=== PATIENT | male | born 1985 | race Caucasian/White ===

== ENCOUNTER 2020-09-02 08:57 | Inpatient (IN) | payer OTHER ==
[~2020-09-02] VITALS: Ht 185.4 cm; Wt 85.0 kg
[2020-09-02 09:33] LABS: BASOPHILS % (AUTO) 0.2 % (0-1); EOSINOPHILS % (AUTO) 0.1 % (0-6); HEMATOCRIT 46.8 % (42.0-52.0); HEMOGLOBIN 15.8 g/dl (14.0-17.9); LYMPHOCYTES # (AUTO) 0.6 X10'3 (1.1-4.8); LYMPHOCYTES % (AUTO) 9.3 % (21-51); MEAN CORPUSCULAR HEMOGLOBIN 29.4 PG (27.0-31.0); MEAN CORPUSCULAR HGB CONC 33.8 g/dL (33.0-36.5); MEAN CORPUSCULAR VOLUME 87.1 FL (78-98); MEAN PLATELET VOLUME 9.9 FL (7.4-10.4); MONOCYTES # (AUTO) 0.5 X10'3 (0-0.9); MONOCYTES % (AUTO) 8.3 % (2-12); NEUTROPHILS # (AUTO) 4.9 X10'3 (1.8-7.7); NEUTROPHILS % (AUTO) 82.1 % (42-75); PLATELET COUNT 147 X10'3 (140-440); RED BLOOD COUNT 5.37 X10'6 (4.70-6.10); RED CELL DISTRIBUTION WIDTH 13.3 % (11.5-14.5)
[2020-09-02 09:42] LABS: ALANINE AMINOTRANSFERASE 20 U/L (12-78); ALBUMIN 3.9 G/DL (3.4-5.0); ALBUMIN/GLOBULIN RATIO 1.1 (1.1-1.5); ALKALINE PHOSPHATASE 75 IU/L (46-116); ANION GAP 12 (8-16); ASPARTATE AMINO TRANSFERASE 13 U/L (10-37); BILIRUBIN,TOTAL 0.4 MG/DL (0.1-1.0); BLOOD UREA NITROGEN 9 MG/DL (7-18); BUN/CREATININE RATIO 8.5 (5.4-32.0); CALCIUM 8.7 MG/DL (8.5-10.1); CHLORIDE 106 MMOL/L (99-107); CREATININE 1.06 MG/DL (0.60-1.10); GLUCOSE 120 MG/DL (70-104); POTASSIUM 3.9 MMOL/L (3.5-5.1); SODIUM 142 MMOL/L (135-145); TOTAL CARBON DIOXIDE 23.7 MMOL/L (24-32); TOTAL PROTEIN 7.5 G/DL (6.4-8.2); eGFR 79 ML/MIN
--- NOTE | 2020-09-02 10:37 | NUR ---
GRACIE AT THE BEDSIDE TO INTERROGATE PACEMAKER. [employer] REP CALLED FROM [facility] TO INFORM THAT THEY WOULD NOT BE ABLE TO COME HERE TO INTERROGATE THE PACEMAKER UNTIL THURSDAY OR THURSDAY. CONTACT NUMBER FOR [employer] IS [phone]
[2020-09-02] MEDS ORDERED: magnesium 2GM in 50ml NS 50 ML IV PRN (10:50)
[2020-09-02] MEDS ORDERED: acetaminophen 325mg tablet PO PRN ×2 (10:50)
[2020-09-02] MEDS ORDERED: magnesium Cl slow-release 64mg tablet PO PRN (10:50)
[2020-09-02] MEDS ORDERED: magnesium hydroxide 30ml (MOM) UD suspension PO PRN (10:50)
[2020-09-02] MEDS ORDERED: mag hydrox/Alum hydrox/simeth 30ml oral suspension PO PRN (10:50)
[2020-09-02] MEDS ORDERED: morphine 2 MG/ML inj. syringe IV PRN (10:50)
[2020-09-02] MEDS ORDERED: potassium Cl 20 mEq SR tablet PO PRN ×2 (10:50)
[2020-09-02] MEDS ORDERED: magnesium 4gm in 100ml NS 100 ML IV PRN (10:50)
[2020-09-02] MEDS ORDERED: HYDROcodone/acetaminophen 5mg/325mg tablet PO PRN (10:50)
[2020-09-02] MEDS ORDERED: ondansetron/PF 4mg/2ml inj IV PRN (10:50)
[2020-09-02] MEDS ORDERED: potassium Cl 40MEQ/1/2NS 520ml 520 ML IV PRN ×2 (10:50)
[2020-09-02] MEDS ORDERED: NO HOME MEDS (11:32)
[2020-09-02 16:22] VITALS: BP 118/63
[2020-09-02] MEDS: normal saline 1000ml 1,000 ML IV SCH (16:45)
--- NOTE | 2020-09-02 18:21 | NUR ---
Patient in room PCU 3008. I have received report from Yam[employer]x and had the opportunity to ask questions and assume patient care.
[2020-09-02 19:00] VITALS: BP 113/73
[2020-09-02] MEDS: K and/or MAG REPLACEMENT MC SCH (19:58)
[2020-09-02 20:00] VITALS: BP_SYST 105; BP_SYST 113; BP_DIAS 57; BP_DIAS 73
[2020-09-02] MEDS ORDERED: temazepam 15mg capsule PO PRN (21:00)
[2020-09-02 22:00] VITALS: BP 117/63
[2020-09-03] VITALS (12 sets, daily range): BP systolic 101–136; BP diastolic 57–77
[2020-09-03] MEDS: normal saline 1000ml 1,000 ML IV SCH ×2 (01:50→15:43)
--- NOTE | 2020-09-03 06:20 | NUR ---
Problems reprioritized. Patient report given, questions answered & plan of care reviewed with Becca.
[2020-09-03 06:32] LABS: ALANINE AMINOTRANSFERASE 17 U/L (12-78); ALBUMIN 3.4 G/DL (3.4-5.0); ALKALINE PHOSPHATASE 64 IU/L (46-116); ANION GAP 9 (8-16); ASPARTATE AMINO TRANSFERASE 9 U/L (10-37); BILIRUBIN,TOTAL 0.3 MG/DL (0.1-1.0); BLOOD UREA NITROGEN 10 MG/DL (7-18); BUN/CREATININE RATIO 11.2 (5.4-32.0); CALCIUM 8.7 MG/DL (8.5-10.1); CHLORIDE 109 MMOL/L (99-107); CREATININE 0.89 MG/DL (0.60-1.10); GLUCOSE 102 MG/DL (70-104); MAGNESIUM 2.1 MG/DL (1.5-2.4); POTASSIUM 4.1 MMOL/L (3.5-5.1); SODIUM 144 MMOL/L (135-145); TOTAL CARBON DIOXIDE 25.9 MMOL/L (24-32); TOTAL PROTEIN 6.8 G/DL (6.4-8.2); eGFR > 90 ML/MIN
[2020-09-03 07:11] LABS: BASOPHILS % (AUTO) 0.4 % (0-1); EOSINOPHILS % (AUTO) 0.4 % (0-6); HEMATOCRIT 43.4 % (42.0-52.0); LYMPHOCYTES # (AUTO) 1.4 X10'3 (1.1-4.8); LYMPHOCYTES % (AUTO) 36.5 % (21-51); MEAN CORPUSCULAR HGB CONC 34.6 g/dL (33.0-36.5); MEAN CORPUSCULAR VOLUME 86.7 FL (78-98); MONOCYTES # (AUTO) 0.6 X10'3 (0-0.9); MONOCYTES % (AUTO) 15.2 % (2-12); NEUTROPHILS # (AUTO) 1.9 X10'3 (1.8-7.7); NEUTROPHILS % (AUTO) 47.5 % (42-75); PLATELET COUNT 133 X10'3 (140-440); RED CELL DISTRIBUTION WIDTH 13.7 % (11.5-14.5); WHITE BLOOD COUNT 3.9 X10'3 (4.5-11.0)
--- NOTE | 2020-09-03 07:20 | NUR ---
PATIENT AWAKE, RECEIVED REPORT FROM ADAM RN, UPDATED THE BOARD AND PICKED UP SAAD
[2020-09-03] MEDS: K and/or MAG REPLACEMENT MC SCH ×2 (08:00→20:00)
[2020-09-03] MEDS ORDERED: midazolam 1 mg/ML 2ml injection ONE (17:01)
[2020-09-03] MEDS ORDERED: ceFAZolin 1000mg inj ONE (17:02)
[2020-09-03] MEDS ORDERED: ceFAZolin 2gm in dextrose, iso 50 ML IV ONE (17:02)
[2020-09-03] MEDS ORDERED: fentaNYL/PF 50MCG/1 ML 2ML syringe ONE (17:02)
[2020-09-03] MEDS ORDERED: LIDOcaine 1% W/epiNEPHrine 1:100,000 20ml vial ONE (17:02)
[2020-09-03] MEDS: ceFAZolin/D5W- 1GM premix 50 ML IV SCH (23:59)
[2020-09-04 02:00] VITALS: BP 114/60
[2020-09-04] MEDS: normal saline 1000ml 1,000 ML IV SCH (04:55)
--- NOTE | 2020-09-04 06:15 | NUR ---
Problems reprioritized. Patient report given, questions answered & plan of care reviewed with DWAYNE Teixeira.
--- NOTE | 2020-09-04 06:46 | NUR ---
Patient in room PCU 3008. I have received report from Thelma RICE and had the opportunity to ask questions and assume patient care.
[2020-09-04 07:51] LABS: BASOPHILS % (AUTO) 0.2 % (0-1); EOSINOPHILS % (AUTO) 0.2 % (0-6); HEMATOCRIT 44.2 % (42.0-52.0); HEMOGLOBIN 14.9 g/dl (14.0-17.9); LYMPHOCYTES # (AUTO) 1.7 X10'3 (1.1-4.8); LYMPHOCYTES % (AUTO) 32.4 % (21-51); MEAN CORPUSCULAR HEMOGLOBIN 29.6 PG (27.0-31.0); MEAN CORPUSCULAR HGB CONC 33.8 g/dL (33.0-36.5); MEAN CORPUSCULAR VOLUME 87.7 FL (78-98); MEAN PLATELET VOLUME 10.5 FL (7.4-10.4); MONOCYTES # (AUTO) 0.4 X10'3 (0-0.9); MONOCYTES % (AUTO) 8.2 % (2-12); NEUTROPHILS # (AUTO) 3.1 X10'3 (1.8-7.7); PLATELET COUNT 135 X10'3 (140-440); RED BLOOD COUNT 5.04 X10'6 (4.70-6.10); RED CELL DISTRIBUTION WIDTH 13.7 % (11.5-14.5); WHITE BLOOD COUNT 5.3 X10'3 (4.5-11.0)
[2020-09-04 08:00] VITALS: BP 122/74
[2020-09-04] MEDS: K and/or MAG REPLACEMENT MC SCH (08:00)
[2020-09-04] MEDS: ceFAZolin/D5W- 1GM premix 50 ML IV SCH (08:11)
[2020-09-04 08:13] LABS: ALANINE AMINOTRANSFERASE 21 U/L (12-78); ALBUMIN 3.3 G/DL (3.4-5.0); ALBUMIN/GLOBULIN RATIO 0.9 (1.1-1.5); ANION GAP 8 (8-16); ASPARTATE AMINO TRANSFERASE 12 U/L (10-37); BILIRUBIN,TOTAL 0.3 MG/DL (0.1-1.0); BLOOD UREA NITROGEN 12 MG/DL (7-18); BUN/CREATININE RATIO 12.8 (5.4-32.0); CALCIUM 8.1 MG/DL (8.5-10.1); CHLORIDE 107 MMOL/L (99-107); CREATININE 0.94 MG/DL (0.60-1.10); GLUCOSE 91 MG/DL (70-104); MAGNESIUM 2.1 MG/DL (1.5-2.4); POTASSIUM 4.2 MMOL/L (3.5-5.1); SODIUM 142 MMOL/L (135-145); TOTAL CARBON DIOXIDE 27.5 MMOL/L (24-32); TOTAL PROTEIN 6.8 G/DL (6.4-8.2); eGFR > 90 ML/MIN
[2020-09-04 08:33] LABS: ALKALINE PHOSPHATASE 60 IU/L (46-116)
--- NOTE | 2020-09-04 11:35 | NUR ---
Discharge instructions given to patient, patient verbalized understanding of all instructions made. Peripheral IV catheter removed, tip intact. Instructed patient to ensure he has all his belongings with him before leaving the hospital. Patient was instructed to continue Covid 19 isolation at home for 8 more days as per Dennys Caldwell, [employer] nurse. Instructions about pacemaker care, precaution, and symptoms to watch for as well as follow up with senior medical billing specialist were discussed.
--- NOTE | 2020-09-04 12:30 | NUR ---
Patient's pacemaker ID card was given to patient by charge nurse hSelly upon discharge.
== END 2020-09-04 12:03 | disposition home or self-care (01) | DRG 242 ==
LOC: ER 08:58 → ED HOLD 10:50 → EDBEDREQ 13:59 → PCU 3S 15:30
PROVIDERS: ADMIT Internal Medicine; ATTEND Internal Medicine
PROC: 0JPT0PZ Removal of Cardiac Rhythm Related Device from Trunk Subcutaneous Tissue and Fascia, Open Approach (ICD-10-PCS; principal; 2020-09-03)
PROC: 0JH606Z Insertion of Pacemaker, Dual Chamber into Chest Subcutaneous Tissue and Fascia, Open Approach (ICD-10-PCS; 2020-09-03)
PROC: 02HK3JZ Insertion of Pacemaker Lead into Right Ventricle, Percutaneous Approach (ICD-10-PCS; 2020-09-03)
PROC: 02PA3MZ Removal of Cardiac Lead from Heart, Percutaneous Approach (ICD-10-PCS; 2020-09-03)
PROC: 02H63JZ Insertion of Pacemaker Lead into Right Atrium, Percutaneous Approach (ICD-10-PCS; 2020-09-03)
DX: I49.5 Sick sinus syndrome (principal); U07.1 COVID-19; R55 Syncope and collapse
CPT/HCPCS: 33228; 36415; 71045; 80053; 83735; 84484; 85025; 85610; 87635; 93005; 93306; 99152; 99153; 99285; A4620; A6258; C1785; C9803; G0378; J0690; J2250; J3010; J7030